=== PATIENT | female | born 1980 | race Two or more races ===

== ENCOUNTER 2017-04-04 12:41 | Emergency (ER) | payer OTHER ==
[~2017-04-04] VITALS: Ht 157.5 cm; Wt 64.0 kg
[2017-04-04 12:49] VITALS: BP 167/112
== END 2017-04-04 13:02 ==
LOC: ER 12:42
DX: R42 Dizziness and giddiness (principal); I10 Essential (primary) hypertension
CPT/HCPCS: 99283; A4606; Z7610